=== PATIENT | male | born 1990 | race Caucasian/White ===

== ENCOUNTER 2019-11-30 | Emergency (ER) | payer OTHER ==
[~2019-11-30] MED LIST: ROCEPHIN 2250 MG/VIA IM; ZITHROMAX500 MG PO
[2019-11-30] MEDS ORDERED: ADDERALL XR30 MG PO (17:41)
[2019-11-30] MEDS ORDERED: FLEXERIL PO (20:03)
== END 2019-11-30 20:10 | disposition home or self-care (01) | DRG 552 ==
DX: S16.1XXA Strain of muscle, fascia and tendon at neck level, initial encounter (principal); V43.52XA Car driver injured in collision with other type car in traffic accident, initial encounter